=== PATIENT | male | born 1955 | race Caucasian/White ===

== ENCOUNTER 2018-01-11 05:39 | Inpatient (IN) | payer OTHER ==
[~2018-01-11] VITALS: Ht 185.4 cm; Wt 84.8 kg
[2018-01-11 06:36] LABS: PLATELET COUNT 250 x10^3mcL (130-400)
[2018-01-11 06:59] LABS: CALCIUM 8.7 mg/dL (8.5-10.1); CHLORIDE SERUM 101 mmol/L (98-107); CREATININE SERUM 0.9 mg/dL (0.7-1.3); GFR1 > 60 mL/min; GLUCOSE SERUM 117 mg/dL (74-106); POTASSIUM SERUM 4.3 mmol/L (3.5-5.1); SODIUM SERUM 136 mmol/L (136-145)
[2018-01-11 07:02] LABS: ALBUMIN 3.7 g/dL (3.4-5.0); ALKALINE PHOSPHATASE 57 U/L (46-116); ALT/SGPT 29 U/L (16-63); AST/SGOT 17 U/L (15-37); BILIRUBIN TOTAL 0.7 mg/dL (0.20-1.00); LIPASE 98 IU/L (73-393); TOTAL PROTEIN, SERUM 7.3 g/dL (6.4-8.2)
[2018-01-11 08:18] LABS: BAND NEUTROPHIL 1 % (0-10); BASOPHIL 0 % (0-2); MONOCYTE 6 % (0-7); SEGMENTED NEUTROPHILS 89 % (37-75)
[2018-01-11 08:20] LABS: PLATELET MORPHOLOGY PLATELETS NORMAL; rbc morphology (normal/abnorm) ABNORMAL (NORMAL)
[2018-01-11 11:52] VITALS: BP 108/69
[2018-01-11 17:20] VITALS: BP 121/72
[2018-01-11 17:39] VITALS: BP 117/77
[2018-01-11 20:47] VITALS: BP 100/59
[2018-01-12 06:01] VITALS: BP 93/55
[2018-01-12 09:00] VITALS: BP 98/54
[2018-01-12] MEDS ORDERED: ACETAMINOPHEN-H1 TA1 PO (16:19)
[2018-01-12] MEDS ORDERED: AMOX/CLAV POT1 TAB PO (16:21)
[2018-01-12 16:40] VITALS: BP 98/54
[2018-01-12 17:26] VITALS: BP 116/72
[2018-01-12 21:52] VITALS: BP 93/53
[2018-01-13 05:40] VITALS: BP 122/67
[2018-01-13 07:45] VITALS: BP 123/80
[2018-01-13 12:49] VITALS: BP 109/60; BP 122/78
[2018-01-13 16:18] VITALS: BP 103/60
== END 2018-01-13 18:25 | disposition home or self-care (01) | DRG 343 ==
LOC: ED 05:39 → MU 10:43
PROVIDERS: Emergency Medicine; Surgery
PROC: 0DTJ4ZZ Resection of Appendix, Percutaneous Endoscopic Approach (ICD-10-PCS; principal; 2018-01-11 18:00)
DX: K35.80 Unspecified acute appendicitis (principal); N40.0 Benign prostatic hyperplasia without lower urinary tract symptoms; E78.5 Hyperlipidemia, unspecified; E78.00 Pure hypercholesterolemia, unspecified; K76.0 Fatty (change of) liver, not elsewhere classified; E86.9 Volume depletion, unspecified
CPT/HCPCS: J0330; J0690; J1170; J1885; J2250; J2270; J2405; J2543; J2704; J2710; J3010; J3490; J7030; J7042; J7120; Q0092